=== PATIENT | female | born 1995 | race Caucasian/White ===

== ENCOUNTER 2017-02-19 13:38 | Emergency (ER) | payer BC, OTHER ==
--- NOTE | 2017-02-19 14:03 | EDM.PDOC ---
ED HPI GENERAL MEDICAL PROBLEM - General Chief Complaint: Abdominal Pain Stated Complaint: Abdominal pain Time Seen by Provider: 02/19/17 13:50 Source of Information: Reports: Patient, RN notes reviewed History Limitations: Reports: No Limitations - History of Present Illness INITIAL COMMENTS - FREE TEXT/NARRATIVE: 21 year old female presents to the ED with lower severe abdominal pain that came on suddenly about 2 hours prior to arrival. She describes the pain as sharp and stabbing. The pain is constant with episodes of more severe pain. The pain is located to her entire lower abdomen an LUQ. She has associated nausea and vomiting. No fever or chills. She's been seeing Tiny العراقي for abdominal pain and is the process of outpatient workup. She says that Tiny ordered "a bunch of blood work" but she hasn't heard the results. No recent CT scan. She denies possibility of . She's had her period on and off for the last 4 weeks. It just restarted again two days ago. She has painful, heavy periods but never this severe. No urinary symptoms. History of cholecystectomy Left Lower Abdomen Pain Score (Numeric/FACES): 10 - Related Data Allergies Allergy/AdvReac Type Severity Reaction Status Date / Time hydromorphone HCl Allergy "Pass out" Verified 01/29/15 15:16 [From Dilaudid] lidocaine Allergy "Pass Out" Verified 01/29/15 15:16 Home Meds: Home Meds Ibuprofen 200 mg PO Q6H PRN 01/09/15 [History] oxyCODONE HCl/Acetaminophen [Oxycodone-Acetaminophen 5-325] 1 - 2 each PO Q4H PRN #15 tablet 02/19/17 [Rx] Past Medical History Genitourinary History: Reports: Other (see below) Other Genitourinary History: painiful periods Psychiatric History: Reports: Bipolar - Past Surgical History GI Surgical History: Reports: Cholecystectomy Social & Family History - Tobacco Use Smoking Status *Q: Current Every Day Smoker Years of Tobacco use: 4 Packs/Tins Daily: 1 - Caffeine Use Caffeine Use: Reports: Coffee, Energy drinks, Soda - Alcohol Use Days Per Week of Alcohol Use: 2 Number of Drinks Per Day: 5 Total Drinks Per Week: 10 - Recreational Drug Use Recreational Drug Use: No Drug Use in Last 12 Months: No ED ROS GENERAL - Review of Systems Review Of Systems: See Below Constitutional: Reports: No Symptoms. Denies: Fever, Chills Respiratory: Reports: No Symptoms. Denies: Shortness of Breath Cardiovascular: Reports: No Symptoms. Denies: Chest Pain GI/Abdominal: Reports: Abdominal Pain, Diarrhea, Nausea, Vomiting : Reports: No Symptoms. Denies: Flank Pain, Frequency, Urgency ED EXAM, GI/ABD - Physical Exam Exam: See Below Exam Limited By: No Limitations General Appearance: Alert, Anxious, Severe Distress, Obese Respiratory/Chest: No Respiratory Distress, Lungs Clear, Normal Breath Sounds Cardiovascular: Regular Rate, Rhythm GI/Abdominal: Normal Bowel Sounds, Soft, No Organomegaly, No Distention, Guarding, McBurney's Sign, Other (guarded on exam, extremely tender with palpation to LLQ, RLQ, pelvic region, and LUQ). No: Rebound, Rigidity, Moore' s Sign Back Exam: Normal Inspection, Full Range of Motion. No: CVA Tenderness (L), CVA Tenderness (R) Neurological: Alert, Oriented, Normal Cognition Course - Vital Signs Last Recorded V/S: Last Vital Signs Temp 97.7 F 02/19/17 13:59 Pulse 65 02/19/17 13:59 Resp 16 02/19/17 13:59 BP 117/69 02/19/17 13:59 Pulse Ox 100 02/19/17 13:59 - Orders/Labs/Meds Orders: Active Orders 24 hr Category Date Time Status Peripheral IV Care [RC] . DIRECTED Care 02/19/17 14:05 Active UA W/MICROSCOPIC [URIN] Stat Lab 02/19/17 16:09 Results Sodium Chloride 0.9% [Saline Flush] Med 02/19/17 14:04 Active 10 ml FLUSH ASDIRECTED PRN Sodium Chloride 0.9% [Saline Flush] Med 02/19/17 15:29 Active 10 ml FLUSH ONETIME PRN Peripheral IV Insertion Adult [OM.PC] Stat Oth 02/19/17 14:04 Ordered Medication Orders Sodium Chloride (Saline Flush) 10 ml FLUSH ASDIRECTED PRN PRN Reason: Keep Vein Open Last Admin: 02/19/17 14:29 Dose: 10 ml Sodium Chloride (Saline Flush) 10 ml FLUSH ONETIME PRN PRN Reason: IV FLUSH Last Admin: 02/19/17 15:56 Dose: 10 ml Labs: Laboratory Tests 02/19/17 02/19/17 02/19/17 Range/Units 14:20 14:20 16:09 WBC 7.98 (3.98-10.04) K/mm3 RBC 4.85 (3.98-5.22) M/mm3 Hgb 15.2 (11.2-15.7) gm/L Hct 44.8 (34.1-44.9) % MCV 92.4 (79.4-94.8) fl MCH 31.3 (25.6-32.2) pg MCHC 33.9 (32.2-35.5) g/dl RDW Std Deviation 44.9 (36.4-46.3) fL Plt Count 286 (182-369) K/mm3 MPV 10.0 (9.4-12.3) fl Neut % (Auto) 68.5 (34.0-71.1) % Lymph % (Auto) 22.9 (19.3-51.7) % [place] % (Auto) 5.4 (4.7-12.5) % Eos % (Auto) 3.0 (0.7-5.8) Baso % (Auto) 0.1 (0.1-1.2) % Neut # (Auto) 5.46 (1.56-6.13) K/mm3 Lymph # (Auto) 1.83 (1.18-3.74) K/mm3 [place] # (Auto) 0.43 H (0.24-0.36) K/mm3 Eos # (Auto) 0.24 (0.04-0.36) K/mm3 Baso # (Auto) 0.01 (0.01-0.08) K/mm3 Sodium 140 (136-145) mEq/L Potassium 4.0 (3.5-5.1) mEq/L Chloride 105 (98-107) mEq/L Carbon Dioxide 22 (21-32) mEq/L Anion Gap 17.0 H (5-15) BUN 10 (7-18) mg/dL Creatinine 1.1 H (0.55-1.02) mg/dL Est Cr Clr Drug Dosing 75.73 mL/min Estimated GFR (MDRD) > 60 (>60) mL/min BUN/Creatinine Ratio 9.1 L (14-18) Glucose 128 H (74-106) mg/dL Calcium 9.3 (8.5-10.1) mg/dL Total Bilirubin 0.5 (0.2-1.0) mg/dL AST 44 H (15-37) U/L ALT 57 (14-59) U/L Alkaline Phosphatase 72 (46-116) U/L Total Protein 7.1 (6.4-8.2) g/dl Albumin 3.5 (3.4-5.0) g/dl Globulin 3.6 gm/dL Albumin/Globulin Ratio 1.0 (1-2) Urine Color (Yellow) Urine Appearance (Clear) Urine pH (5.0-8.0) Ur Specific [place] (1.005-1.030) Urine Protein (Negative) Urine Glucose (UA) (Negative) Urine Ketones (Negative) Urine Occult Blood (Negative) Urine Nitrite (Negative) Urine Bilirubin (Negative) Urine Urobilinogen (0.2-1.0) Ur Leukocyte Esterase (Negative) Urine HCG, Qual Negative (NEGATIVE) 02/19/17 Range/Units 16:09 WBC (3.98-10.04) K/mm3 RBC (3.98-5.22) M/mm3 Hgb (11.2-15.7) gm/L Hct (34.1-44.9) % MCV (79.4-94.8) fl MCH (25.6-32.2) pg MCHC (32.2-35.5) g/dl RDW Std Deviation (36.4-46.3) fL Plt Count (182-369) K/mm3 MPV (9.4-12.3) fl Neut % (Auto) (34.0-71.1) % Lymph % (Auto) (19.3-51.7) % [place] % (Auto) (4.7-12.5) % Eos % (Auto) (0.7-5.8) Baso % (Auto) (0.1-1.2) % Neut # (Auto) (1.56-6.13) K/mm3 Lymph # (Auto) (1.18-3.74) K/mm3 [place] # (Auto) (0.24-0.36) K/mm3 Eos # (Auto) (0.04-0.36) K/mm3 Baso # (Auto) (0.01-0.08) K/mm3 Sodium (136-145) mEq/L Potassium (3.5-5.1) mEq/L Chloride (98-107) mEq/L Carbon Dioxide (21-32) mEq/L Anion Gap (5-15) BUN (7-18) mg/dL Creatinine (0.55-1.02) mg/dL Est Cr Clr Drug Dosing mL/min Estimated GFR (MDRD) (>60) mL/min BUN/Creatinine Ratio (14-18) Glucose (74-106) mg/dL Calcium (8.5-10.1) mg/dL Total Bilirubin (0.2-1.0) mg/dL AST (15-37) U/L ALT (14-59) U/L Alkaline Phosphatase (46-116) U/L Total Protein (6.4-8.2) g/dl Albumin (3.4-5.0) g/dl Globulin gm/dL Albumin/Globulin Ratio (1-2) Urine Color [place] H (Yellow) Urine Appearance Slt cloudy H (Clear) Urine pH 7.0 (5.0-8.0) Ur Specific [place] 1.015 (1.005-1.030) Urine Protein 1+ H (Negative) Urine Glucose (UA) Negative (Negative) Urine Ketones Negative (Negative) Urine Occult Blood 3+ H (Negative) Urine Nitrite Negative (Negative) Urine Bilirubin Negative (Negative) Urine Urobilinogen 0.2 (0.2-1.0) Ur Leukocyte Esterase Negative (Negative) Urine HCG, Qual (NEGATIVE) Meds: Medications Generic Name Dose Route Start Last Admin Trade Name Freq PRN Reason Stop Dose Admin Sodium Chloride 10 ml 02/19/17 14:04 02/19/17 14:29 Saline Flush FLUSH 10 ml ASDIRECTED PRN Administration Keep Vein Open Sodium Chloride 10 ml 02/19/17 15:29 02/19/17 15:56 Saline Flush FLUSH 10 ml ONETIME PRN Administration IV FLUSH Discontinued Medications Generic Name Dose Route Start Last Admin Trade Name Freq PRN Reason Stop Dose Admin Diatrizoate Meglum/Diatrizoate Sod 90 ml 02/19/17 15:29 02/19/17 15:52 Gastrografin 37% PO 02/19/17 15:30 90 ml ONETIME ONE Administration Fentanyl 50 mcg 02/19/17 14:08 02/19/17 14:30 Sublimaze IVPUSH 02/19/17 14:09 50 mcg ONETIME ONE Administration Fentanyl 50 mcg 02/19/17 16:05 02/19/17 16:13 Sublimaze IVPUSH 02/19/17 16:06 50 mcg ONETIME ONE Administration Sodium Chloride 1,000 mls @ 999 mls/hr 02/19/17 14:04 02/19/17 14:24 Normal Saline IV 02/19/17 15:04 999 mls/hr ONETIME ONE Administration Iopamidol 125 ml 02/19/17 15:29 02/19/17 15:52 Isovue-300 (61%) IVPUSH 02/19/17 15:30 125 ml ONETIME ONE Administration Ketorolac Tromethamine 30 mg 02/19/17 14:04 02/19/17 14:27 Toradol IVPUSH 02/19/17 14:05 30 mg ONETIME ONE Administration Ondansetron HCl 4 mg 02/19/17 14:04 02/19/17 14:25 Zofran IVPUSH 02/19/17 14:05 4 mg ONETIME ONE Administration - Re-Assessments/Exams Free Text/Narrative Re-Assessment/Exam: Records obtained from [facility]. Workup at [facility] includes CBC normal. CMP normal except for mildly elevated ALT of 63. TSH WNL. CRP WNL. ESR WNL. Endomysial IgA negative. Amylase and lipase WNL. Full stool testing were unremarkable including negative C.diff and H Pylori. 02/19/17 16:42 CBC reveals normal WBC and H&H. CMP reveals normal potassium and sodium. Anion gap is 17. Creatinine 1.1 and BUN 10. Mildly elevated AST but normal ALT. Hcg is negative and UA is negative for infection. CT of abdomen/pelvis read by Dr. Walker, impression: 1. Bowel wall thickening within the transverse and descending colon. This is compatible with nonspecific colitis. 2. Previous cholecystectomy. No additional abnormality is appreciated on CT study The patients CBC is normal, making infectious cause of colitis unlikely. By history, this seems to be a chronic problem. She is currently working with her PCP regarding her frequent GI symptoms. I recommend colonoscopy for further evaluation of her colitis since there is concern for inflammatory bowel disease. Patient will be sent home with Percocet for pain. Encouraged to return with worsening of symptoms. She is to f/u with her PCP early next week. Departure - Departure Time of Disposition: 16:37 Disposition: Home, Self-Care 01 Condition: good Clinical Impression: Colitis, nonspecific Abdominal pain Qualifiers: Abdominal location: generalized Qualified Code(s): R10.84 - Generalized abdominal pain - Discharge Information Prescriptions: oxyCODONE HCl/Acetaminophen [Oxycodone-Acetaminophen 5-325] 1 - 2 each PO Q4H PRN #15 tablet PRN Reason: Pain Referrals: Tiny العراقي [employer] COORDINATOR [Primary Care Provider] - Forms: ED Department Discharge Additional Instructions: [place] diet Drink at least 80 oz of clear fluid per day Use your nausea medication as prescribed Ibuprofen 600mg every 8 hours alternating with Tylenol 650mg every 4-6 hours as needed for mild to moderate pain Percocet 1-2 tabs every 4-6 hours as needed for more severe pain Do not exceed 3000mg of Tylenol per day No driving today No driving for at least 6-8 hours after taking Percocet Follow-up with Tiny العراقي early next week Return to ER with worsening of symptoms - My Orders Last 24 Hours: My Active Orders 02/19/17 14:04 Sodium Chloride 0.9% [Saline Flush] 10 ml FLUSH ASDIRECTED PRN Peripheral IV Insertion Adult [OM.PC] Stat 02/19/17 14:05 Peripheral IV Care [RC] . DIRECTED 02/19/17 15:29 Sodium Chloride 0.9% [Saline Flush] 10 ml FLUSH ONETIME PRN 02/19/17 16:09 UA W/MICROSCOPIC [URIN] Stat - Assessment/Plan Last 24 Hours: My Active Orders 02/19/17 14:04 Sodium Chloride 0.9% [Saline Flush] 10 ml FLUSH ASDIRECTED PRN Peripheral IV Insertion Adult [OM.PC] Stat 02/19/17 14:05 Peripheral IV Care [RC] . DIRECTED 02/19/17 15:29 Sodium Chloride 0.9% [Saline Flush] 10 ml FLUSH ONETIME PRN 02/19/17 16:09 UA W/MICROSCOPIC [URIN] Stat
[2017-02-19] MEDS ORDERED: Sodium Chloride 0.9% 1,000 ML IV ONE (14:04)
[2017-02-19] MEDS ORDERED: Sodium Chloride 0.9% 10 ML Syringe FLUSH PRN ×2 (14:04→15:29)
[2017-02-19] MEDS ORDERED: Ondansetron 4 MG/2 ML SDV IVPUSH ONE (14:04)
[2017-02-19] MEDS ORDERED: Ketorolac 30 MG/ML SDV IVPUSH ONE (14:04)
[2017-02-19 14:05] VITALS: BP 117/69
[2017-02-19] MEDS ORDERED: fentaNYL 100 MCG/2 ML SDV IVPUSH ONE ×2 (14:08→16:05)
[2017-02-19] MEDS ORDERED: Diatrizoate Meglumine/Diatrizoate Sodium 37% 120 ML Bottle PO ONE (15:29)
[2017-02-19] MEDS ORDERED: Iopamidol 612 MG/ML 150 ML Bottle IVPUSH ONE (15:29)
--- NOTE | 2017-02-19 16:15 | CT ---
CT abdomen and pelvis Technique: Multiple axial sections were obtained from above the dome of the diaphragm inferiorly through the pubic symphysis. Intravenous and oral contrast was utilized. Delayed images were also obtained through the bladder. Comparison: Previous CT abdomen and pelvis exam of 12/13/12. Findings: Visualized lung bases shows nothing acute. Liver shows no focal parenchymal abnormality. Spleen appears within normal limits. Adrenal glands show no nodule. Pancreas is within normal limits. Surgical clips are noted from prior cholecystectomy. Mild wall thickening is noted within the transverse and descending colon. This is nonspecific. Aorta shows no aneurysmal dilatation. No retroperitoneal adenopathy or mesenteric abnormalities are seen. No pelvic mass or adenopathy is seen. Delayed images shows contrast within the bladder. No free fluid or inflammatory change is seen. No bowel dilatation is seen. Appendix is seen which appears normal. Impression: 1. Bowel wall thickening within the transverse and descending colon. This is compatible with a nonspecific colitis. 2. Previous cholecystectomy. No additional abnormality is appreciated on CT study of the abdomen and pelvis. Diagnostic code #3
== END 2017-02-19 17:00 | disposition home or self-care (01) ==
LOC: JD.ED 13:38
DX: K52.9 Noninfective gastroenteritis and colitis, unspecified (principal); R10.30 Lower abdominal pain, unspecified; R10.12 Left upper quadrant pain; F31.9 Bipolar disorder, unspecified; N94.6 Dysmenorrhea, unspecified; Z90.49 Acquired absence of other specified parts of digestive tract; F17.210 Nicotine dependence, cigarettes, uncomplicated
CPT/HCPCS: 36415; 74177; 80053; 81001; 81025; 85025; 96361; 96374; 96375; 96376; 99285; J1885; J2405; J3010; J7040; J7050; Q9963; Q9967; 99284

== ENCOUNTER 2017-07-26 08:08 | Emergency (ER) | payer BC ==
[2017-07-26 08:25] VITALS: BP 135/77
[2017-07-26] MEDS ORDERED: Metoclopramide 10 MG/2 ML SDV IVPUSH ONE (08:36)
--- NOTE | 2017-07-26 08:36 | EDM.PDOC ---
ED HPI GENERAL MEDICAL PROBLEM - General Chief Complaint: Abdominal Pain Stated Complaint: LEFT ABDOMINAL PAIN Time Seen by Provider: 07/26/17 08:30 Source of Information: Reports: Patient History Limitations: Reports: No Limitations - History of Present Illness INITIAL COMMENTS - FREE TEXT/NARRATIVE: 22-year-old female presents to the ED with diffuse left lateral midabdominal pain. She states it awoke her from sleep during the night and has a strong colicky component to it. She states she's having loose stools. No blood noted. Normal bowel movement for a couple of days. He's had this similar type pain on 3 or 4 occasions in the past. Associated nausea without any vomiting this morning. No history of renal stones. Did have a colonoscopy recently with polypectomy. No colitis was identified. Diagnosed with irritable bowel syndrome in the past. Last period was around the beginning of the month which would be 15 days ago. Drinks alcohol daily and mother feels to excess. Previous cholecystectomy. Feeling of need to void but often unable to do so suggestive of kidney stone. No dysuria. Note patient is on Abilify 5 mg daily for bipolar affective disorder. This medication is commonly associated with constipation issues. Onset: Today Onset Date: 07/26/17 Onset Time: 03:00 Duration: Hour(s):, Colic, Constant Location: Reports: Abdomen (Pain is constant with a strong colicky component. [place] most left lateral mid abdomen. Pain radiates towards the bladder. Does have a feeling of need to void a lot but unable to do so.) Quality: Reports: Ache, Same as Previous Episode, Sharp, Stabbing Severity: Severe Improves with: Reports: None Worsens with: Reports: None Context: Reports: Other (Awoke from sleep early this morning with the pain.). Denies: Activity, Exercise, Lifting, Sick Contact, Trauma Associated Symptoms: Reports: Loss of Appetite (Nausea without vomiting), Nausea /Vomiting. Denies: Malaise, Shortness of Breath, Syncope Treatments DIE REPAIR: Reports: Other (see below) (None.) Left Abdomen Pain Score (Numeric/FACES): 7 - Related Data Allergies Allergy/AdvReac Type Severity Reaction Status Date / Time hydromorphone HCl Allergy "Pass out" Verified 07/26/17 08:25 [From Dilaudid] lidocaine Allergy "Pass Out" Verified 07/26/17 08:25 Home Meds: Home Meds ARIPiprazole [Abilify] 5 mg PO DAILY 07/26/17 [History] buPROPion [Wellbutrin] 100 mg PO DAILY 07/26/17 [History] oxyCODONE HCl/Acetaminophen [Percocet 5-325 mg Tablet] 1 - 2 each PO Q4H PRN # 20 tablet 07/26/17 [Rx] Past Medical History Genitourinary History: Reports: Other (See Below) Other Genitourinary History: painiful periods Psychiatric History: Reports: Bipolar - Past Surgical History GI Surgical History: Reports: Cholecystectomy Social & Family History - Tobacco Use Smoking Status *Q: Current Every Day Smoker Years of Tobacco use: 5 Packs/Tins Daily: 1 - Caffeine Use Caffeine Use: Reports: None - Alcohol Use Days Per Week of Alcohol Use: 2 Number of Drinks Per Day: 5 Total Drinks Per Week: 10 - Recreational Drug Use Recreational Drug Use: No Drug Use in Last 12 Months: No - Living Situation & Occupation Living situation: Reports: Single Occupation: Unemployed ED ROS GENERAL - Review of Systems Review Of Systems: See Below Constitutional: Reports: Malaise, Fatigue, Decreased Appetite. Denies: Fever, Chills HEENT: Reports: No Symptoms Respiratory: Reports: No Symptoms Cardiovascular: Reports: No Symptoms Endocrine: Reports: No Symptoms GI/Abdominal: Reports: Abdominal Pain, Constipation (Issues with constipation in the past.), Diarrhea (Current stools are loose. Associated with the cramping pain.) : Reports: Urgency (But often can't go. Has a feeling of need to void but unable to do so.) Musculoskeletal: Reports: No Symptoms Skin: Reports: No Symptoms Neurological: Reports: No Symptoms Psychiatric: Reports: No Symptoms ED EXAM, GI/ABD - Physical Exam Exam: See Below Exam Limited By: No Limitations General Appearance: Alert, WD/WN, Moderate Distress (Appears to be uncomfortable.) Eyes: Bilateral: Normal Appearance (No icterus.) Throat/Mouth: Normal Inspection, Normal Lips, Normal Oropharynx, Other Head: Atraumatic, Normocephalic (Tongue is mildly coated and dry) Respiratory/Chest: No Respiratory Distress, Lungs Clear, Normal Breath Sounds, No Accessory Muscle Use Cardiovascular: Normal Peripheral Pulses, Regular Rate, Rhythm, No Edema, No Murmur GI/Abdominal Exam: No Organomegaly, No Distention, Tender, Abnormal Bowel Sounds (Quiescent bowel sounds.), Other Extremities: Normal Inspection, Normal Range of Motion, Non-Tender, Normal Capillary Refill Neurological: Alert, Oriented, CN II-XII Intact, Normal Cognition Psychiatric: Normal Affect, Normal Mood Skin Exam: Warm, Dry, Intact, Normal Color, No Rash Course - Vital Signs Last Recorded V/S: Last Vital Signs Temp 36.2 C 07/26/17 08:20 Pulse 86 07/26/17 08:20 Resp 16 07/26/17 08:20 BP 135/77 07/26/17 08:20 Pulse Ox 93 L 07/26/17 08:20 - Orders/Labs/Meds Orders: Active Orders 24 hr Category Date Time Status Abdomen 1V Flat [CR] Stat Exams 07/26/17 08:45 Taken Labs: Laboratory Tests 07/26/17 07/26/17 07/26/17 Range/Units 08:55 08:55 08:55 WBC 9.00 (3.98-10.04) K/mm3 RBC 4.63 (3.98-5.22) M/mm3 Hgb 14.4 (11.2-15.7) gm/L Hct 42.5 (34.1-44.9) % MCV 91.8 (79.4-94.8) fl MCH 31.1 (25.6-32.2) pg MCHC 33.9 (32.2-35.5) g/dl RDW Std Deviation 44.4 (36.4-46.3) fL Plt Count 299 (182-369) K/mm3 MPV 9.4 (9.4-12.3) fl Neutrophils % (Manual) 49 (40-60) % Band Neutrophils % 0 (0-10) % Lymphocytes % (Manual) 40 (20-40) % Atypical Lymphs % 0 % Monocytes % (Manual) 5 (2-10) % Eosinophils % (Manual) 6 H (0.7-5.8) % Basophils % (Manual) 0 L (0.1-1.2) Platelet Estimate Adequate RBC Morph Comment Normal PT 10.4 (8.0-13.0) SECONDS INR 0.96 Sodium 144 (136-145) mEq/L Potassium 3.8 (3.5-5.1) mEq/L Chloride 108 H (98-107) mEq/L Carbon Dioxide 26 (21-32) mEq/L Anion Gap 13.8 (5-15) BUN 10 (7-18) mg/dL Creatinine 1.1 H (0.55-1.02) mg/dL Est Cr Clr Drug Dosing TNP Estimated GFR (MDRD) > 60 (>60) mL/min BUN/Creatinine Ratio 9.1 L (14-18) Glucose 95 (74-106) mg/dL Calcium 9.1 (8.5-10.1) mg/dL Magnesium 1.8 (1.8-2.4) mg/dl Total Bilirubin 0.4 (0.2-1.0) mg/dL AST 34 (15-37) U/L ALT 45 (14-59) U/L Alkaline Phosphatase 58 (46-116) U/L Total Protein 6.7 (6.4-8.2) g/dl Albumin 3.2 L (3.4-5.0) g/dl Globulin 3.5 gm/dL Albumin/Globulin Ratio 0.9 L (1-2) Lipase 98 (73-393) U/L HCG, Qual (NEGATIVE) 07/26/17 Range/Units 08:55 WBC (3.98-10.04) K/mm3 RBC (3.98-5.22) M/mm3 Hgb (11.2-15.7) gm/L Hct (34.1-44.9) % MCV (79.4-94.8) fl MCH (25.6-32.2) pg MCHC (32.2-35.5) g/dl RDW Std Deviation (36.4-46.3) fL Plt Count (182-369) K/mm3 MPV (9.4-12.3) fl Neutrophils % (Manual) (40-60) % Band Neutrophils % (0-10) % Lymphocytes % (Manual) (20-40) % Atypical Lymphs % % Monocytes % (Manual) (2-10) % Eosinophils % (Manual) (0.7-5.8) % Basophils % (Manual) (0.1-1.2) Platelet Estimate RBC Morph Comment PT (8.0-13.0) SECONDS INR Sodium (136-145) mEq/L Potassium (3.5-5.1) mEq/L Chloride (98-107) mEq/L Carbon Dioxide (21-32) mEq/L Anion Gap (5-15) BUN (7-18) mg/dL Creatinine (0.55-1.02) mg/dL Est Cr Clr Drug Dosing Estimated GFR (MDRD) (>60) mL/min BUN/Creatinine Ratio (14-18) Glucose (74-106) mg/dL Calcium (8.5-10.1) mg/dL Magnesium (1.8-2.4) mg/dl Total Bilirubin (0.2-1.0) mg/dL AST (15-37) U/L ALT (14-59) U/L Alkaline Phosphatase (46-116) U/L Total Protein (6.4-8.2) g/dl Albumin (3.4-5.0) g/dl Globulin gm/dL Albumin/Globulin Ratio (1-2) Lipase (73-393) U/L HCG, Qual Negative (NEGATIVE) Meds: Medications Discontinued Medications Generic Name Dose Route Start Last Admin Trade Name Freq PRN Reason Stop Dose Admin Dextrose/Sodium Chloride 1,000 mls @ 150 mls/hr 07/26/17 08:45 07/26/17 09:00 Dextrose 5%-Normal Saline IV 150 mls/hr ASDIRECTED JERE Administration Ketorolac Tromethamine 30 mg 07/26/17 10:00 07/26/17 10:05 Toradol IVPUSH 30 mg ONETIME JERE Administration Metoclopramide HCl 10 mg 07/26/17 08:36 07/26/17 09:01 Reglan IVPUSH 07/26/17 08:37 10 mg ONETIME ONE Administration Morphine Sulfate 8 mg 07/26/17 08:37 07/26/17 09:02 Morphine IVPUSH 07/26/17 08:38 8 mg ONETIME ONE Administration Morphine Sulfate 8 mg 07/26/17 09:48 07/26/17 10:04 Morphine IVPUSH 07/26/17 09:49 8 mg ONETIME ONE Administration - Radiology Interpretation Free Text/Narrative:: 22-year-old female presents the ED with acute exacerbation of left vanessa- abdominal pain. She states most of it is in the left lateral mid abdomen but radiates downwards towards the groin. Associated feeling of need to void but unable to do so. No history of kidney stones overall history is suggestive of this. She states she is having some loose stools associated with cramping abdominal pain. Of note she is on Abilify which is prone to causing constipation. She's been in the ED on a pew occasions the past with similar type illness. Recent colonoscopy identified polyps but no signs of colitis. Plan D5 normal saline at 150 mils per hour. Given morphine 8 mg IV with Reglan 10 mg IV for pain relief. Labs to be done to include a serum lipase as she does drink alcohol daily. One view of the abdomen to be obtained. - Re-Assessments/Exams Free Text/Narrative Re-Assessment/Exam: 07/26/17 09:26 KUB is essentially normal. There is a little bit of increased stool in the splenic flexure of the colon but no significant constipation. No signs of bowel obstruction. Awaiting lab work to make sure she is not and will proceed with CT of the abdomen and pelvis per renal protocol to rule out a stone. Hematology is back indicating a white count of 9.0 with 49% neutrophils and no bands. Hemoglobin is 14.4 platelets are michelle.Lab tests reveal a white count of 9.0 with 49% neutrophils and no bands. Hemoglobin is 14.4 with hematocrit of 42.5 MCV is normal at 91.8. PT is 10.4 with an INR of 0.96. Sodium 144 potassium 3.8 chloride 108 bicarbonate 26. And a gap is 13.8 be when his 10. Creatinine 1.1 with a GFR greater than 60.. Glucose is 95. Magnesium 1.8. Bilirubin 0.4 AST is 30 . ALT is 45. Albumin fraction is 3.2. Beta hCG was negative. 07/26/17 09:51 complains of pain 7 out of 10. Will repeat morphine 8 mg IV and Toradol 30 mg IV for pain relief. CT scan of the abdomen will be performed without any contrast as her history is somewhat suggestive of renal colic. I have a look at her previous CT but it was done with contrast and no visible stones were identified in either kidney. 07/26/17 11:00 CT scan of the abdomen and pelvis reveals 2 small stones wedged at the distal UVJ on the left side. They appear to be between 1 and 2 mm in size. No other stones were identified within either renal parenchyma. No other abnormality is a patient on CT exam of the abdomen. Patient was not unable to void while in the department. She will be discharged home with a strainer. Percocet tabs 5/325 one or 2 every 4-6 hours needed for pain relief. She has Zofran tablets at home if needed. Stones are likely to pass in the next 48 hours. Follow-up with personal care provider if any other problems occur. Departure - Departure Time of Disposition: 11:01 Disposition: Home, Self-Care 01 Condition: Fair Clinical Impression: Renal colic on left side - Discharge Information Prescriptions: oxyCODONE HCl/Acetaminophen [Percocet 5-325 mg Tablet] 1 - 2 each PO Q4H PRN # 20 tablet PRN Reason: pain relief. Instructions: Renal Colic, [id number] Referrals: [facility] [employer] [facility] [employer] [Primary Care Provider] - Forms: ED Department Discharge Additional Instructions: Evaluation in the emergency room today in regards to awakening from sleep with severe pain left upper abdomen and flank area radiating down to the left lower quadrant of the abdomen. History of kidney stones. You're unable to void and therefore a urine sample could not be obtained to identify blood in the urine. An x-ray of the abdomen was done and was within normal limits as were lab tests. Therefore CT of the abdomen was completed and reveals 2 small stones 1-2 mm in size wedged in the very lower portion of the left ureter. These were passed into the bladder and this will relieve her pain likely within the next 2 days but sometimes it'll take up to a couple weeks to pass. You will therefore take Percocet 5/3/25 milligram tablets one or 2 every 4 hours as needed when the pain returns. May require Zofran under the tongue to relieve nausea so she with the severity of the pain. Strain the urine to make sure the stones passed. No other stones were identified in either kidney to be problematic in the future. Follow-up with her personal care provider of any further problems occur. Especially things like fever chills nausea or vomiting. - My Orders Last 24 Hours: My Active Orders 07/26/17 08:45 Abdomen 1V Flat [CR] Stat - Assessment/Plan Last 24 Hours: My Active Orders 07/26/17 08:45 Abdomen 1V Flat [CR] Stat
[2017-07-26] MEDS ORDERED: Morphine 10 MG/ML Syringe IVPUSH ONE ×2 (08:37→09:48)
[2017-07-26] MEDS ORDERED: Dextrose 5%-0.9% NaCl 1,000 ML IV SCH (08:45)
[2017-07-26] MEDS ORDERED: Ketorolac 30 MG/ML SDV IVPUSH SCH (10:00)
--- NOTE | 2017-07-26 10:38 | CT ---
CT abdomen and pelvis Technique: Multiple axial sections were obtained from above the kidneys inferiorly to the pubic symphysis. Intravenous and oral contrast not utilized. Study has been performed as a ureteral stone protocol. Comparison: Previous abdominal pelvic CT exam of 02/19/17. Findings: Left ureter is mildly prominent. 3 small calcifications measuring 2 mm or below are seen within the distal left ureter at the UVJ which are felt compatible with mildly obstructing ureteral calculi. No abnormal calcifications are seen within the kidneys. Right ureter is unremarkable. Visualized posterior lung bases shows nothing acute. Visualized noncontrast appearance of the liver and spleen appears within normal limits. Surgical clips are seen from prior cholecystectomy. Adrenal glands show no nodule. Pancreas appears within normal limits. Aorta shows no aneurysmal dilatation. No retroperitoneal adenopathy or mesenteric abnormalities are seen. Appendix is seen which appears normal. No pelvic mass or adenopathy is seen. Bone window settings were reviewed which appears within normal limits for the patient's age. Impression: 1. 3 very small calcifications within the distal left ureter measuring 2 mm or less in size. Findings are felt compatible with mildly obstructing calculi which are located near the UVJ. Left ureter is mildly prominent in size. 2. No additional abnormality is appreciated on noncontrast CT study of the abdomen and pelvis. Diagnostic code #3
--- NOTE | 2017-07-26 20:01 | CR ---
Abdomen: Supine view of the abdomen was obtained. Comparison: No prior abdominal x-ray, previous CT abdomen and pelvis exam of 02/19/17. Bowel gas pattern appears normal. Surgical clips are seen from previous cholecystectomy. No definite abnormal calcifications are seen. Bony structures are unremarkable. Impression: 1. Nonspecific supine abdominal x-ray. Diagnostic code #2
== END 2017-07-26 11:12 | disposition home or self-care (01) ==
LOC: JD.ED 08:08
DX: N20.0 Calculus of kidney (principal); F17.210 Nicotine dependence, cigarettes, uncomplicated; Z79.899 Other long term (current) drug therapy; Z88.5 Allergy status to narcotic agent
CPT/HCPCS: 36415; 74000; 74176; 80053; 83690; 83735; 84703; 85025; 85610; 96361; 96374; 96375; 96376; 99285; J1885; J2270; J2765; J7042; 99284

== ENCOUNTER 2020-12-28 16:25 | Emergency (ER) | payer BC ==
[2020-12-28 16:43] VITALS: PULSE 79
[2020-12-28 16:50] VITALS: BP 160/90
[2020-12-28] MEDS ORDERED: Sodium Chloride 0.9% 10 ML Syringe FLUSH PRN (17:02)
--- NOTE | 2020-12-28 17:41 | EDM.PDOC ---
ED HPI GENERAL MEDICAL PROBLEM - General Chief Complaint: Abdominal Pain Stated Complaint: ABDOMINAL PAIN/SWEATING/VOMITING Time Seen by Provider: 12/28/20 16:35 Source of Information: Reports: Patient History Limitations: Reports: No Limitations - History of Present Illness INITIAL COMMENTS - FREE TEXT/NARRATIVE: 25-year-old female presents to the emergency department with complaints of lower abdominal pain. She started her menses yesterday and normally has severe cramps however she woke this morning and they were significantly worse. Patient did have nausea and vomiting and diaphoresis associated with this. She denies fever, chills, or diarrhea. She states she had a bowel movement this morning and it was normal. She states that she does have an irregular menstrual cycle and prior to this she had not had her period in over 3 months. She does not believe she could be because her significant other has had a vasectomy. She has had surgery to remove her gallbladder in the past however she does still have an appendix. She also states she has had no desire to eat or drink anything today. Treatments BERRY GROWER: Reports: NSAIDS, Other Medication(s) - Related Data Allergies Allergy/AdvReac Type Severity Reaction Status Date / Time amoxicillin Allergy Rash Verified 12/28/20 16:34 hydromorphone HCl Allergy "Pass out" Verified 07/26/17 08:25 [From Dilaudid] Home Meds: Home Meds Ustekinumab [Stelara] 90 mg SQ ASDIRECTED 12/28/20 [History] traMADol HCl [Tramadol HCl] 50 mg PO ASDIRECTED PRN 12/28/20 [History] Past Medical History HEENT History: Reports: None Cardiovascular History: Reports: None Respiratory History: Reports: Asthma, Bronchitis, Recurrent Gastrointestinal History: Reports: Cholelithiasis, GERD, Hiatal Hernia Genitourinary History: Reports: Other (See Below) Other Genitourinary History: painiful periods Musculoskeletal History: Reports: Arthritis Neurological History: Reports: Migraines Psychiatric History: Reports: Bipolar Endocrine/Metabolic History: Reports: Obesity/BMI 30+ Immunologic History: Reports: None Oncologic (Cancer) History: Reports: None Dermatologic History: Reports: None - Infectious Disease History Infectious Disease History: Reports: Influenza, Other (See Below) Other Infectious Disease History: Swine flu - Past Surgical History HEENT Surgical History: Reports: Oral Surgery GI Surgical History: Reports: Cholecystectomy Social & Family History - Family History Family Medical History: No Pertinent Family History - Tobacco Use Tobacco Use Status *Q: Current Every Day Tobacco User Years of Tobacco use: 8 Packs/Tins Daily: 0.5 - Caffeine Use Caffeine Use: Reports: Soda - Recreational Drug Use Recreational Drug Use: No - Living Situation & Occupation Living situation: Reports: Single Occupation: Unemployed ED ROS GENERAL - Review of Systems Review Of Systems: Comprehensive ROS is negative, except as noted in HPI. ED EXAM, GI/ABD - Physical Exam Exam: See Below Exam Limited By: No Limitations General Appearance: Alert, WD/WN, No Apparent Distress Ears: Normal External Exam, Hearing Grossly Normal Nose: Normal Inspection Throat/Mouth: Normal Inspection, Normal Lips, Normal Voice, No Airway Compromise Head: Atraumatic, Normocephalic Neck: Normal Inspection, Supple, Non-Tender, Full Range of Motion Respiratory/Chest: No Respiratory Distress, Lungs Clear, Normal Breath Sounds, No Accessory Muscle Use, Chest Non-Tender Cardiovascular: Normal Peripheral Pulses, Regular Rate, Rhythm, No Edema, No Murmur GI/Abdominal Exam: Normal Bowel Sounds, Soft, No Distention, Tender (To right and left lower quadrant as well as right upper quadrant). No: Non-Tender (Female) Exam: Deferred Rectal (Female) Exam: Deferred Back Exam: Normal Inspection, Full Range of Motion Extremities: Normal Inspection, Normal Range of Motion, Non-Tender, No Pedal Edema, Normal Capillary Refill Neurological: Alert, Oriented, Normal Cognition Psychiatric: Normal Affect, Normal Mood Skin Exam: Warm, Dry, Intact, Normal Color, No Rash Lymphatic: No Adenopathy Course - Vital Signs Text/Narrative:: 25-year-old female presenting with lower abdominal pain. Patient states that she started her menstrual cycle yesterday and normally has severe menstrual cramps however this morning when she woke she said they were much worse. Patient states that that her menstrual cycle is very regular and prior to today she had had a cycle for about 3 months. She denies any history of ovarian cysts. States that she is having lower abdominal cramping which radiates around to her back on both sides which are exactly like her menstrual cramps however today the pain was so severe that it caused her to have nausea, vomiting, and diaphoresis. She denies any fever, chills, or diarrhea associated with this. She denies any dysuria. She denies the possibility that she could be due to her significant other having vasectomy in the past however she does not take any kind of control. Patient states that pain is significantly better from this morning as she did take tramadol to help the discomfort. I have ordered labs and a urine test as well as urinalysis. Last Recorded V/S: Last Vital Signs Temp 97.5 F 12/28/20 16:49 Pulse 79 12/28/20 16:49 Resp 18 12/28/20 16:49 BP 160/90 H 12/28/20 16:49 Pulse Ox 98 12/28/20 16:49 - Orders/Labs/Meds Orders: Active Orders 24 hr Category Date Time Status Transvaginal Non OB [US] Stat Exams 12/28/20 19:07 Ordered CULTURE URINE [] Stat Lab 12/28/20 17:00 Received Sodium Chloride 0.9% [Saline Flush] Med 12/28/20 17:02 Active 10 ml FLUSH ASDIRECTED PRN Saline Lock Insert [OM.PC] Stat Oth 12/28/20 17:02 Ordered Medication Orders Sodium Chloride (Sodium Chloride 0.9% 10 Ml Syringe) 10 ml FLUSH ASDIRECTED PRN PRN Reason: Keep Vein Open Last Admin: 12/28/20 17:05 Dose: 10 ml Documented by: MAXIMO Labs: Laboratory Tests 12/28/20 12/28/20 12/28/20 Range/Units 16:50 16:50 17:00 WBC 9.95 (3.98-10.04) K/mm3 RBC 4.61 (3.98-5.22) M/mm3 Hgb 14.9 (11.2-15.7) gm/dl Hct 44.3 (34.1-44.9) % MCV 96.1 H D (79.4-94.8) fl MCH 32.3 H (25.6-32.2) pg MCHC 33.6 (32.2-35.5) g/dl RDW Std Deviation 45.3 (36.4-46.3) fL Plt Count 292 (182-369) K/mm3 MPV 9.5 (9.4-12.3) fl Neut % (Auto) 69.9 (34.0-71.1) % Lymph % (Auto) 23.7 (19.3-51.7) % [place] % (Auto) 5.6 (4.7-12.5) % Eos % (Auto) 0.6 L (0.7-5.8) Baso % (Auto) 0.1 (0.1-1.2) % Neut # (Auto) 6.95 H (1.56-6.13) K/mm3 Lymph # (Auto) 2.36 (1.18-3.74) K/mm3 [place] # (Auto) 0.56 H (0.24-0.36) K/mm3 Eos # (Auto) 0.06 (0.04-0.36) K/mm3 Baso # (Auto) 0.01 (0.01-0.08) K/mm3 Sodium 142 (136-145) mEq/L Potassium 4.2 (3.5-5.1) mEq/L Chloride 105 (98-107) mEq/L Carbon Dioxide 25 (21-32) mEq/L Anion Gap 16.2 H (5-15) BUN 8 (7-18) mg/dL Creatinine 1.1 H (0.55-1.02) mg/dL Est Cr Clr Drug Dosing 74.61 mL/min Estimated GFR (MDRD) > 60 (>60) mL/min BUN/Creatinine Ratio 7.3 L (14-18) Glucose 94 (74-106) mg/dL Calcium 8.9 (8.5-10.1) mg/dL Total Bilirubin 0.8 (0.2-1.0) mg/dL AST 33 (15-37) U/L ALT 52 (14-59) U/L Alkaline Phosphatase 59 (46-116) U/L C-Reactive Protein 1.1 H* (<1.0) mg/dL Total Protein 6.9 (6.4-8.2) g/dl Albumin 3.4 (3.4-5.0) g/dl Globulin 3.5 gm/dL Albumin/Globulin Ratio 1.0 (1-2) Urine Color Yellow (Yellow) Urine Appearance Clear (Clear) Urine pH 5.5 (5.0-8.0) Ur Specific [place] > or = 1.030 (1.005-1.030) Urine Protein 3+ H (Negative) Urine Glucose (UA) Negative (Negative) Urine Ketones Negative (Negative) Urine Occult Blood 3+ H (Negative) Urine Nitrite Negative (Negative) Urine Bilirubin 1+ H (Negative) Urine Urobilinogen 0.2 (0.2-1.0) Ur Leukocyte Esterase 1+ H (Negative) Urine RBC 30-40 H (0-5) /hpf Urine WBC 5-10 H (0-5) /hpf Ur Squamous Epith Cells 5-10 H (0-5) /hpf Urine Bacteria Few (FEW) /hpf Urine Mucus Moderate H (FEW) /hpf Urine HCG, Qual (NEGATIVE) 12/28/20 Range/Units 17:00 WBC (3.98-10.04) K/mm3 RBC (3.98-5.22) M/mm3 Hgb (11.2-15.7) gm/dl Hct (34.1-44.9) % MCV (79.4-94.8) fl MCH (25.6-32.2) pg MCHC (32.2-35.5) g/dl RDW Std Deviation (36.4-46.3) fL Plt Count (182-369) K/mm3 MPV (9.4-12.3) fl Neut % (Auto) (34.0-71.1) % Lymph % (Auto) (19.3-51.7) % [place] % (Auto) (4.7-12.5) % Eos % (Auto) (0.7-5.8) Baso % (Auto) (0.1-1.2) % Neut # (Auto) (1.56-6.13) K/mm3 Lymph # (Auto) (1.18-3.74) K/mm3 [place] # (Auto) (0.24-0.36) K/mm3 Eos # (Auto) (0.04-0.36) K/mm3 Baso # (Auto) (0.01-0.08) K/mm3 Sodium (136-145) mEq/L Potassium (3.5-5.1) mEq/L Chloride (98-107) mEq/L Carbon Dioxide (21-32) mEq/L Anion Gap (5-15) BUN (7-18) mg/dL Creatinine (0.55-1.02) mg/dL Est Cr Clr Drug Dosing mL/min Estimated GFR (MDRD) (>60) mL/min BUN/Creatinine Ratio (14-18) Glucose (74-106) mg/dL Calcium (8.5-10.1) mg/dL Total Bilirubin (0.2-1.0) mg/dL AST (15-37) U/L ALT (14-59) U/L Alkaline Phosphatase (46-116) U/L C-Reactive Protein (<1.0) mg/dL Total Protein (6.4-8.2) g/dl Albumin (3.4-5.0) g/dl Globulin gm/dL Albumin/Globulin Ratio (1-2) Urine Color (Yellow) Urine Appearance (Clear) Urine pH (5.0-8.0) Ur Specific [place] (1.005-1.030) Urine Protein (Negative) Urine Glucose (UA) (Negative) Urine Ketones (Negative) Urine Occult Blood (Negative) Urine Nitrite (Negative) Urine Bilirubin (Negative) Urine Urobilinogen (0.2-1.0) Ur Leukocyte Esterase (Negative) Urine RBC (0-5) /hpf Urine WBC (0-5) /hpf Ur Squamous Epith Cells (0-5) /hpf Urine Bacteria (FEW) /hpf Urine Mucus (FEW) /hpf Urine HCG, Qual Negative (NEGATIVE) Meds: Medications Generic Name Dose Route Start Last Admin Trade Name Cami PRN Reason Stop Dose Admin Sodium Chloride 10 ml 12/28/20 17:02 12/28/20 17:05 Sodium Chloride 0.9% 10 Ml Syringe FLUSH 10 ml ASDIRECTED PRN Administration Keep Vein Open Discontinued Medications Generic Name Dose Route Start Last Admin Trade Name Cami PRN Reason Stop Dose Admin Ketorolac Tromethamine 60 mg 12/28/20 17:55 12/28/20 18:40 Ketorolac 60 Mg/2 Ml Sdv IM 12/28/20 17:56 60 mg ONETIME ONE Administration Metoclopramide HCl 10 mg 12/28/20 17:55 12/28/20 18:39 Metoclopramide 10 Mg/2 Ml Sdv IM 12/28/20 17:56 10 mg ONETIME ONE Administration - Re-Assessments/Exams Free Text/Narrative Re-Assessment/Exam: 12/28/20 18:07 Hematology is unremarkable, chemistry reveals sodium 142, potassium 4.2, anion gap 16.2, BUN 8, creatinine 1.1, glucose 94, C-reactive protein 1.1, Urinalysis reveals 3+ urine protein, 3+ occult blood, 1+ bilirubin, leuk esterase 1+, urine RBC 30-40, urine WBC 5-10, urine squamous epithelial cells 5- 10, urine mucus moderate, urine hCG negative. Patient is on her period and this is likely the reason for the 3+, and RBCs present. Urine sample appears contaminated however we will send it for culture and call the patient if these are positive. 12/28/20 19:07 Patient states she is still having cramping type of discomfort after being medicated with Toradol and Reglan. I have ordered a transvaginal ultrasound. 12/28/20 19:36 Pt is not wanting to stay to have ultrasound and is requesting to go home. Departure - Departure Time of Disposition: 19:37 Disposition: Home, Self-Care 01 Condition: Fair Clinical Impression: Abdominal pain Qualifiers: Abdominal location: generalized Qualified Code(s): R10.84 - Generalized abdominal pain - Discharge Information Referrals: Giovanna Jiménez NP [Primary Care Provider] - Forms: ED Department Discharge Additional Instructions: You were seen in the emergency department today with lower abdominal cramping and cramping into your back. Labs were completed and these were essentially unremarkable and did not show any signs of infection. However, I did order a transvaginal ultrasound and you did not want to have this completed and stated that you felt better. Go home and rest. Take ibuprofen for the menstrual discomfort. Follow-up with your [facility] next week if you are still having lower abdominal discomfort. Should your condition worsen or change please not hesitate returning to the emergency department Sepsis Event Note (ED) - Evaluation Sepsis Screening Result: No Definite Risk - Focused Exam Vital Signs: Vital Signs Temp Pulse Resp BP Pulse Ox 12/28/20 16:49 97.5 F 79 18 160/90 H 98 12/28/20 16:41 97.5 F 79 18 98 - My Orders Last 24 Hours: My Active Orders 12/28/20 17:00 CULTURE URINE [RM] Stat 12/28/20 17:02 Sodium Chloride 0.9% [Saline Flush] 10 ml FLUSH ASDIRECTED PRN Saline Lock Insert [OM.PC] Stat 12/28/20 19:07 Transvaginal Non OB [US] Stat - Assessment/Plan Last 24 Hours: My Active Orders 12/28/20 17:00 CULTURE URINE [RM] Stat 12/28/20 17:02 Sodium Chloride 0.9% [Saline Flush] 10 ml FLUSH ASDIRECTED PRN Saline Lock Insert [OM.PC] Stat 12/28/20 19:07 Transvaginal Non OB [US] Stat
[2020-12-28] MEDS ORDERED: Metoclopramide 10 MG/2 ML SDV IM ONE (17:55)
[2020-12-28] MEDS ORDERED: Ketorolac 60 MG/2 ML SDV IM ONE (17:55)
== END 2020-12-28 19:46 | disposition home or self-care (01) ==
LOC: JD.ED 16:25
DX: R10.84 Generalized abdominal pain (principal); R10.31 Right lower quadrant pain; R10.32 Left lower quadrant pain; R10.11 Right upper quadrant pain; R11.2 Nausea with vomiting, unspecified; R61 Generalized hyperhidrosis; J45.909 Unspecified asthma, uncomplicated; E66.9 Obesity, unspecified; Z68.43 Body mass index [BMI] 50.0-59.9, adult; Z72.0 Tobacco use; Z88.0 Allergy status to penicillin; Z88.5 Allergy status to narcotic agent
CPT/HCPCS: 36415; 80053; 81001; 81025; 85025; 86140; 87086; 96372; 99284; J1885; J2765

== ENCOUNTER 2021-05-27 06:18 | Emergency (ER) | payer BC ==
[2021-05-27 06:32] VITALS: BP 130/77; PULSE 65
[2021-05-27] MEDS ORDERED: Ondansetron 4 MG/2 ML SDV IVPUSH ONE (06:52)
[2021-05-27] MEDS ORDERED: Sodium Chloride 0.9% 10 ML Syringe FLUSH PRN (06:52)
[2021-05-27] MEDS ORDERED: Morphine 4 MG/ML Syringe IVPUSH ONE ×2 (06:54→09:00)
--- NOTE | 2021-05-27 06:59 | EDM.PDOC ---
ED HPI GENERAL MEDICAL PROBLEM - General Chief Complaint: Abdominal Pain Stated Complaint: UPPER ABDOMINAL PAIN Time Seen by Provider: 05/27/21 06:47 Source of Information: Reports: Patient History Limitations: Reports: No Limitations - History of Present Illness INITIAL COMMENTS - FREE TEXT/NARRATIVE: The patient presents with right upper abdominal pain, nausea, and vomiting. This started at about 5am. She had her gallbladder removed a few years ago. She has no fever, chills, cough, congestion, runny nose chest pain, shortness of breath or diarrhea. She was just diagnosed with bronchitis. Onset: Sudden Duration: Hour(s): Location: Reports: Abdomen Quality: Reports: Sharp Severity: Severe Improves with: Reports: None Worsens with: Reports: None Associated Symptoms: Reports: Nausea/Vomiting. Denies: Chest Pain, Cough, Fever/Chills, Headaches, Shortness of Breath Epigastric Pain Score (Numeric/FACES): 9 - Related Data Allergies Allergy/AdvReac Type Severity Reaction Status Date / Time amoxicillin Allergy Rash Verified 05/27/21 06:32 hydromorphone HCl AdvReac "Pass out" Verified 05/27/21 06:32 [From Dilaudid] Home Meds: Home Meds Ciprofloxacin HCl [Cipro] 500 mg PO BID #28 tablet 05/27/21 [Rx] Hydrocodone/Acetaminophen [Hydrocodone-Acetamin 5-325 mg] 1 - 2 each PO Q6H PRN #15 tablet 05/27/21 [Rx] Ondansetron [Zofran ODT] 4 mg PO Q6H PRN #20 tab.dis 05/27/21 [Rx] metroNIDAZOLE [Flagyl] 500 mg PO Q8H #42 tab 05/27/21 [Rx] Past Medical History HEENT History: Reports: None Cardiovascular History: Reports: None Respiratory History: Reports: Asthma, Bronchitis, Recurrent Gastrointestinal History: Reports: Cholelithiasis, GERD, Hiatal Hernia Genitourinary History: Reports: Other (See Below) Other Genitourinary History: painiful periods Musculoskeletal History: Reports: Arthritis Neurological History: Reports: Migraines Psychiatric History: Reports: Bipolar Endocrine/Metabolic History: Reports: Obesity/BMI 30+ Immunologic History: Reports: None Oncologic (Cancer) History: Reports: None Dermatologic History: Reports: None - Infectious Disease History Infectious Disease History: Reports: Influenza, Other (See Below) Other Infectious Disease History: Swine flu - Past Surgical History HEENT Surgical History: Reports: Oral Surgery GI Surgical History: Reports: Cholecystectomy Social & Family History - Family History Family Medical History: No Pertinent Family History - Tobacco Use Tobacco Use Status *Q: Current Every Day Tobacco User Years of Tobacco use: 8 Packs/Tins Daily: 1 - Caffeine Use Caffeine Use: Reports: Coffee, Soda - Recreational Drug Use Recreational Drug Use: No - Living Situation & Occupation Living situation: Reports: Single Occupation: Unemployed ED ROS GENERAL - Review of Systems Review Of Systems: See Below Constitutional: Reports: No Symptoms HEENT: Reports: No Symptoms Respiratory: Reports: No Symptoms Cardiovascular: Reports: No Symptoms Endocrine: Reports: No Symptoms GI/Abdominal: Reports: Abdominal Pain, Nausea, Vomiting. Denies: Diarrhea : Reports: No Symptoms Musculoskeletal: Reports: No Symptoms ED EXAM, GI/ABD - Physical Exam Exam: See Below Exam Limited By: No Limitations General Appearance: Alert, No Apparent Distress Ears: Normal External Exam Nose: Normal Inspection Head: Atraumatic, Normocephalic Neck: Normal Inspection Respiratory/Chest: No Respiratory Distress, Lungs Clear, Normal Breath Sounds Cardiovascular: Regular Rate, Rhythm, No Edema, No Murmur GI/Abdominal Exam: Soft, No Organomegaly, No Mass, Tender (Moderate pain upon palpation to the right upper abdomen) Course - Vital Signs Last Recorded V/S: Last Vital Signs Temp 96 F L 05/27/21 06:28 Pulse 65 05/27/21 06:28 Resp 20 05/27/21 06:28 BP 130/77 05/27/21 06:28 Pulse Ox 98 05/27/21 06:28 - Orders/Labs/Meds Orders: Active Orders 24 hr Category Date Time Status Cardiac Monitoring [RC] . DIRECTED Care 05/27/21 06:52 Active Peripheral IV Care [RC] . DIRECTED Care 05/27/21 06:52 Active Sodium Chloride 0.9% [Normal Saline] 1,000 ml Med 05/27/21 07:00 Active IV .BOLUS Sodium Chloride 0.9% [Saline Flush] Med 05/27/21 06:52 Active 10 ml FLUSH ASDIRECTED PRN Sodium Chloride 0.9% [Saline Flush] Med 05/27/21 07:08 Active 10 ml FLUSH ONETIME PRN ED Antiemetic Medication Reflex [OM.PC] Stat Oth 05/27/21 06:52 Ordered Peripheral IV Insertion Adult [OM.PC] Stat Oth 05/27/21 06:52 Ordered Medication Orders Sodium Chloride (Normal Saline) 1,000 mls @ 1,000 mls/hr IV .BOLUS JERE Last Admin: 05/27/21 07:16 Dose: 1,000 mls/hr Documented by: MAXIMO Sodium Chloride (Sodium Chloride 0.9% 10 Ml Syringe) 10 ml FLUSH ASDIRECTED PRN PRN Reason: Keep Vein Open Last Admin: 05/27/21 07:17 Dose: 10 ml Documented by: MAXIMO Sodium Chloride (Sodium Chloride 0.9% 10 Ml Syringe) 10 ml FLUSH ONETIME PRN PRN Reason: IV FLUSH Last Admin: 05/27/21 08:20 Dose: 10 ml Documented by: Admin: 05/27/21 07:18 Dose: 10 ml Documented by: MAXIMO Labs: Laboratory Tests 05/27/21 05/27/21 05/27/21 Range/Units 07:05 07:05 07:05 WBC 11.79 H (3.98-10.04) K/mm3 RBC 4.43 (3.98-5.22) M/mm3 Hgb 13.9 (11.2-15.7) gm/dl Hct 42.0 (34.1-44.9) % MCV 94.8 (79.4-94.8) fl MCH 31.4 (25.6-32.2) pg MCHC 33.1 (32.2-35.5) g/dl RDW Std Deviation 41.5 (36.4-46.3) fL Plt Count 295 (182-369) K/mm3 MPV 9.7 (9.4-12.3) fl Neut % (Auto) 61.0 (34.0-71.1) % Lymph % (Auto) 32.2 (19.3-51.7) % [place] % (Auto) 5.4 (4.7-12.5) % Eos % (Auto) 0.7 (0.7-5.8) Baso % (Auto) 0.2 (0.1-1.2) % Neut # (Auto) 7.19 H (1.56-6.13) K/mm3 Lymph # (Auto) 3.80 H (1.18-3.74) K/mm3 [place]erry # (Auto) 0.64 H (0.24-0.36) K/mm3 Eos # (Auto) 0.08 (0.04-0.36) K/mm3 Baso # (Auto) 0.02 (0.01-0.08) K/mm3 Manual Slide Review Normal smear Sodium 144 (136-145) mEq/L Potassium 3.7 (3.5-5.1) mEq/L Chloride 106 (98-107) mEq/L Carbon Dioxide 28 (21-32) mEq/L Anion Gap 13.7 (5-15) BUN 18 (7-18) mg/dL Creatinine 0.9 (0.55-1.02) mg/dL Est Cr Clr Drug Dosing 96.39 mL/min Estimated GFR (MDRD) > 60 (>60) mL/min BUN/Creatinine Ratio 20.0 H (14-18) Glucose 103 H (70-99) mg/dL Calcium 8.4 L (8.5-10.1) mg/dL Total Bilirubin 0.3 (0.2-1.0) mg/dL AST 91 H (15-37) U/L ALT 93 H (14-59) U/L Alkaline Phosphatase 54 (46-116) U/L C-Reactive Protein <0.2 (<1.0) mg/dL Total Protein 6.8 (6.4-8.2) g/dl Albumin 3.3 L (3.4-5.0) g/dl Globulin 3.5 gm/dL Albumin/Globulin Ratio 0.9 L (1-2) Lipase 97 (73-393) U/L HCG, Qual Negative (NEGATIVE) Urine Color (Yellow) Urine Appearance (Clear) Urine pH (5.0-8.0) Ur Specific [place] (1.005-1.030) Urine Protein (Negative) Urine Glucose (UA) (Negative) Urine Ketones (Negative) Urine Occult Blood (Negative) Urine Nitrite (Negative) Urine Bilirubin (Negative) Urine Urobilinogen (0.2-1.0) Ur Leukocyte Esterase (Negative) Urine RBC (0-5) /hpf Urine WBC (0-5) /hpf Ur Squamous Epith Cells (0-5) /hpf Urine Bacteria (FEW) /hpf Urine Mucus (FEW) /hpf 05/27/21 Range/Units 08:29 WBC (3.98-10.04) K/mm3 RBC (3.98-5.22) M/mm3 Hgb (11.2-15.7) gm/dl Hct (34.1-44.9) % MCV (79.4-94.8) fl MCH (25.6-32.2) pg MCHC (32.2-35.5) g/dl RDW Std Deviation (36.4-46.3) fL Plt Count (182-369) K/mm3 MPV (9.4-12.3) fl Neut % (Auto) (34.0-71.1) % Lymph % (Auto) (19.3-51.7) % [place]erry % (Auto) (4.7-12.5) % Eos % (Auto) (0.7-5.8) Baso % (Auto) (0.1-1.2) % Neut # (Auto) (1.56-6.13) K/mm3 Lymph # (Auto) (1.18-3.74) K/mm3 [place] # (Auto) (0.24-0.36) K/mm3 Eos # (Auto) (0.04-0.36) K/mm3 Baso # (Auto) (0.01-0.08) K/mm3 Manual Slide Review Sodium (136-145) mEq/L Potassium (3.5-5.1) mEq/L Chloride (98-107) mEq/L Carbon Dioxide (21-32) mEq/L Anion Gap (5-15) BUN (7-18) mg/dL Creatinine (0.55-1.02) mg/dL Est Cr Clr Drug Dosing mL/min Estimated GFR (MDRD) (>60) mL/min BUN/Creatinine Ratio (14-18) Glucose (70-99) mg/dL Calcium (8.5-10.1) mg/dL Total Bilirubin (0.2-1.0) mg/dL AST (15-37) U/L ALT (14-59) U/L Alkaline Phosphatase (46-116) U/L C-Reactive Protein (<1.0) mg/dL Total Protein (6.4-8.2) g/dl Albumin (3.4-5.0) g/dl Globulin gm/dL Albumin/Globulin Ratio (1-2) Lipase (73-393) U/L HCG, Qual (NEGATIVE) Urine Color Yellow (Yellow) Urine Appearance Clear (Clear) Urine pH 6.0 (5.0-8.0) Ur Specific [place] 1.025 (1.005-1.030) Urine Protein Negative (Negative) Urine Glucose (UA) Negative (Negative) Urine Ketones Negative (Negative) Urine Occult Blood Negative (Negative) Urine Nitrite Negative (Negative) Urine Bilirubin Negative (Negative) Urine Urobilinogen 0.2 (0.2-1.0) Ur Leukocyte Esterase Negative (Negative) Urine RBC 0-5 (0-5) /hpf Urine WBC 0-5 (0-5) /hpf Ur Squamous Epith Cells 5-10 H (0-5) /hpf Urine Bacteria Moderate H (FEW) /hpf Urine Mucus Few (FEW) /hpf Meds: Medications Generic Name Dose Route Start Last Admin Trade Name Freheather PRN Reason Stop Dose Admin Sodium Chloride 1,000 mls @ 1,000 mls/hr 05/27/21 07:00 05/27/21 07:16 Normal Saline IV 1,000 mls/hr .BOLUS JERE Administration Sodium Chloride 10 ml 05/27/21 06:52 05/27/21 07:17 Sodium Chloride 0.9% 10 Ml Syringe FLUSH 10 ml ASDIRECTED PRN Administration Keep Vein Open Sodium Chloride 10 ml 05/27/21 07:08 05/27/21 08:20 Sodium Chloride 0.9% 10 Ml Syringe FLUSH 10 ml ONETIME PRN Administration IV FLUSH Discontinued Medications Generic Name Dose Route Start Last Admin Trade Name Freheather PRN Reason Stop Dose Admin Diatrizoate Meglum/Diatrizoate Sod 120 ml 05/27/21 07:08 05/27/21 08:19 Diatrizoate Meglumine/Diatrizoate Sodium 37% 120 Ml Bottle PO 05/27/21 07:09 45 ml ONETIME ONE Administration Iopamidol 50 ml 05/27/21 07:08 05/27/21 08:20 Iopamidol 612 Mg/Ml 50 Ml Sdv IVPUSH 05/27/21 07:09 50 ml ONETIME ONE Administration Iopamidol 100 ml 05/27/21 07:08 05/27/21 08:20 Iopamidol 612 Mg/Ml 100 Ml Bottle IVPUSH 05/27/21 07:09 100 ml ONETIME ONE Administration Metoclopramide HCl 10 mg 05/27/21 09:01 05/27/21 09:12 Metoclopramide 10 Mg/2 Ml Sdv IVPUSH 05/27/21 09:02 10 mg ONETIME ONE Administration Morphine Sulfate 4 mg 05/27/21 06:54 05/27/21 07:12 Morphine 4 Mg/Ml Syringe IVPUSH 05/27/21 06:55 4 mg ONETIME ONE Administration Morphine Sulfate 4 mg 05/27/21 09:00 05/27/21 09:14 Morphine 4 Mg/Ml Syringe IVPUSH 05/27/21 09:01 4 mg ONETIME ONE Administration Ondansetron HCl 4 mg 05/27/21 06:52 05/27/21 07:10 Ondansetron 4 Mg/2 Ml Sdv IVPUSH 05/27/21 06:53 4 mg ONETIME ONE Administration - Re-Assessments/Exams Free Text/Narrative Re-Assessment/Exam: 05/27/21 06:58 I ordered an IV NS 1L bolus, zofran 4mg IV, morphine 4mg IV, labs, UA and a CT of her abdomen and pelvis. 05/27/21 09:16 Her WBC was slightly elevated at 11.79. Her AST is elevated at 91. Her ALT is elevated at 93. Her CRP is normal. Her lipase is normal. Her HCG is negative. Her UA shows no UTI. Her CT shows bowel wall thickening within portions of the right colon and transverse colon compatible with a nonspecific colitis. Gastroesophageal reflux of contrast is noted. No other acute abnormality is appreciated on CT study of the abdomen and pelvis. She has more pain and nausea so I ordered morphine 4mg IV and reglan 10mg IV. I have also called Dr Klein. 05/27/21 09:43 Dr Klein contacted me back. She recommended a stool sample to check for C-dif and culture, flagyl and cipro and follow up in he clinic. Departure - Departure Time of Disposition: 09:45 Disposition: Home, Self-Care 01 Condition: Good Clinical Impression: Nonspecific colitis - Discharge Information *PRESCRIPTION DRUG MONITORING PROGRAM REVIEWED*: Not Applicable *COPY OF PRESCRIPTION DRUG MONITORING REPORT IN PATIENT [place]: Not Applicable Prescriptions: Ciprofloxacin HCl [Cipro] 500 mg PO BID #28 tablet metroNIDAZOLE [Flagyl] 500 mg PO Q8H #42 tab Hydrocodone/Acetaminophen [Hydrocodone-Acetamin 5-325 mg] 1 - 2 each PO Q6H PRN #15 tablet PRN Reason: Pain Ondansetron [Zofran ODT] 4 mg PO Q6H PRN #20 tab.dis PRN Reason: Nausea\\vomiting Referrals: Giovanna Jiménez NP [Primary Care Provider] - Ernie-Zora Burks MD [Physician] - 1 Week Forms: ED Department Discharge, ED Return to Work/School Form Additional Instructions: Drink plenty of fluids. Take the flagyl 3 times per day for 14 days. Take the cipro 2 times per day for 14 days. Try to bring back a stool sample to be tested. Take the zofran every 6 hours as needed for nausea and vomiting. Take the hydrocodone as needed for pain. Follow up with Dr Klein. Please return if you are worse. Sepsis Event Note (ED) - Focused Exam Vital Signs: Vital Signs Temp Pulse Resp BP Pulse Ox 05/27/21 06:28 96 F L 65 20 130/77 98 - My Orders Last 24 Hours: My Active Orders 05/27/21 06:52 Cardiac Monitoring [RC] . DIRECTED Peripheral IV Care [RC] . DIRECTED Sodium Chloride 0.9% [Saline Flush] 10 ml FLUSH ASDIRECTED PRN ED Antiemetic Medication Reflex [OM.PC] Stat Peripheral IV Insertion Adult [OM.PC] Stat 05/27/21 07:00 Sodium Chloride 0.9% [Normal Saline] 1,000 ml IV .BOLUS 05/27/21 07:08 Sodium Chloride 0.9% [Saline Flush] 10 ml FLUSH ONETIME PRN - Assessment/Plan Last 24 Hours: My Active Orders 05/27/21 06:52 Cardiac Monitoring [RC] . DIRECTED Peripheral IV Care [RC] . DIRECTED Sodium Chloride 0.9% [Saline Flush] 10 ml FLUSH ASDIRECTED PRN ED Antiemetic Medication Reflex [OM.PC] Stat Peripheral IV Insertion Adult [OM.PC] Stat 05/27/21 07:00 Sodium Chloride 0.9% [Normal Saline] 1,000 ml IV .BOLUS 05/27/21 07:08 Sodium Chloride 0.9% [Saline Flush] 10 ml FLUSH ONETIME PRN
[2021-05-27] MEDS ORDERED: Sodium Chloride 0.9% 1,000 ML IV SCH (07:00)
[2021-05-27] MEDS ORDERED: Iopamidol 612 MG/ML 100 ML Bottle IVPUSH ONE (07:08)
[2021-05-27] MEDS ORDERED: Iopamidol 612 MG/ML 50 ML SDV IVPUSH ONE (07:08)
[2021-05-27] MEDS ORDERED: Diatrizoate Meglumine/Diatrizoate Sodium 37% 120 ML Bottle PO ONE (07:08)
[2021-05-27] MEDS: Sodium Chloride 0.9% 10 ML Syringe FLUSH PRN ×2 (07:18→08:20)
--- NOTE | 2021-05-27 08:48 | CT ---
CT abdomen and pelvis Technique: Multiple axial sections were obtained from above the dome of the diaphragm inferiorly through the pubic symphysis. Intravenous and oral contrast were utilized. Delayed images were obtained through the bladder. Reconstructed coronal and sagittal images were obtained. Comparison: Prior CT abdomen and pelvis exam of 07/26/17. Findings: Visualized lung bases show nothing acute. Liver contains no focal parenchymal abnormality. Spleen size is normal. Mild gastroesophageal reflux is seen of contrast into the distal esophagus. Adrenal glands show no nodule. Surgical clips are noted from prior cholecystectomy. No abnormality is appreciated within the pancreas. Abdominal aorta shows no aneurysm. Kidneys show symmetric contrast enhancement. No hydronephrosis or mass is seen. Delayed images show contrast within the distal ureters and within the bladder. Abdominal aorta shows no aneurysm. Small retroperitoneal lymph nodes are seen which are believed to be within normal limits. No mesenteric abnormalities are seen. No pelvic mass or adenopathy is seen. Appendix is seen which is normal in size. Bowel wall thickening is seen within portions of the right colon and transverse colon. No free fluid or definite inflammatory change is seen. Bone window settings were reviewed which show no acute osseous finding. Impression: 1. Bowel wall thickening within portions of the right colon and transverse colon compatible with a nonspecific colitis. 2. Gastroesophageal reflux of contrast is noted. 3. No other acute abnormality is appreciated on CT study of the abdomen and pelvis. Diagnostic code #3
[2021-05-27] MEDS ORDERED: Metoclopramide 10 MG/2 ML SDV IVPUSH ONE (09:01)
== END 2021-05-27 10:18 | disposition home or self-care (01) ==
LOC: JD.ED 06:18
DX: K52.9 Noninfective gastroenteritis and colitis, unspecified (principal); K21.9 Gastro-esophageal reflux disease without esophagitis; E66.9 Obesity, unspecified; Z68.42 Body mass index [BMI] 45.0-49.9, adult; Z88.0 Allergy status to penicillin; Z88.5 Allergy status to narcotic agent; Z72.0 Tobacco use; Z79.899 Other long term (current) drug therapy
CPT/HCPCS: 36415; 74177; 80053; 81001; 83690; 84703; 85025; 86140; 96374; 96375; 96376; 99284; J2270; J2405; J2765; J7030; Q9963; Q9967

== ENCOUNTER 2022-11-28 12:04 | Emergency (ER) | payer BC ==
[2022-11-28 12:14] VITALS: BP 157/97; PULSE 77
[2022-11-28] MEDS ORDERED: Morphine 2 MG/ML SYRINGE IM ONE (12:33)
[2022-11-28] MEDS ORDERED: Orphenadrine 100 MG Tab.ER PO ONE (12:37)
== END 2022-11-28 13:50 | disposition home or self-care (01) ==
LOC: JD.ED 12:04
DX: M62.830 Muscle spasm of back (principal); K21.9 Gastro-esophageal reflux disease without esophagitis; F17.210 Nicotine dependence, cigarettes, uncomplicated; E66.9 Obesity, unspecified; Z68.43 Body mass index [BMI] 50.0-59.9, adult; Z88.0 Allergy status to penicillin; Z88.5 Allergy status to narcotic agent; W00.0XXA Fall on same level due to ice and snow, initial encounter
CPT/HCPCS: 96372; 99283; A9270; J2270

== ENCOUNTER 2024-08-30 08:53 | Day surgery (SDC) | payer BC ==
[~2024-08-30 08:53] MED LIST: Sodium Chloride 0.9% 10 ML Syringe FLUSH PRN; Sodium Chloride 0.9% 10 ML Syringe FLUSH SCH
[2024-08-30] MEDS: Lactated Ringers 1,000 ML IV SCH (09:30)
[2024-08-30] MEDS ORDERED: Propofol 200 MG/20 ML SDV ONE ×3 (10:03→10:44)
[2024-08-30] MEDS ORDERED: Midazolam 1 MG/ML 2 ML SDV ONE (10:04)
[2024-08-30] MEDS ORDERED: Labetalol 100 MG/20 ML MDV ONE (10:49)
[2024-08-30] MEDS: Albuterol/Ipratropium 3.0-0.5 MG/3 ML Neb Soln NEB PRN (11:17)
[2024-08-30 12:07] VITALS: BP 132/79; PULSE 86
== END 2024-08-30 11:33 | disposition home or self-care (01) ==
LOC: JD.SDS 08:53
PROVIDERS: ATTEND Surgery
DX: Z12.11 Encounter for screening for malignant neoplasm of colon (principal); K63.5 Polyp of colon; F41.9 Anxiety disorder, unspecified; F32.A Depression, unspecified; J45.40 Moderate persistent asthma, uncomplicated; E66.9 Obesity, unspecified; Z68.43 Body mass index [BMI] 50.0-59.9, adult; F17.210 Nicotine dependence, cigarettes, uncomplicated; Z79.899 Other long term (current) drug therapy; Z88.0 Allergy status to penicillin
CPT/HCPCS: 45380; J1920; J2250; J2704; J7120; 00811; J7620-GY

== ENCOUNTER 2024-11-27 23:16 | Emergency (ER) | payer BC ==
[2024-11-27 23:36] VITALS: BP 134/85; PULSE 82
[2024-11-27] MEDS: Simethicone 80 MG Tab.Chew PO ONE (23:49)
[2024-11-27] MEDS: Ketorolac 30 MG/ML SDV IVPUSH ONE (23:58)
[2024-11-28] MEDS: Polyethylene Glycol 3350 Powder 17 GM Packet PO ONE (01:21)
[2024-11-28] MEDS: Magnesium Citrate Solution 296 ML Bottle PO ONE (01:21)
== END 2024-11-28 01:30 | disposition home or self-care (01) ==
LOC: JD.ED 23:16
DX: K59.00 Constipation, unspecified (principal); R55 Syncope and collapse; J45.909 Unspecified asthma, uncomplicated; E66.9 Obesity, unspecified; K21.9 Gastro-esophageal reflux disease without esophagitis; Z88.8 Allergy status to other drugs, medicaments and biological substances; Z90.49 Acquired absence of other specified parts of digestive tract; Z68.43 Body mass index [BMI] 50.0-59.9, adult; Z79.899 Other long term (current) drug therapy
CPT/HCPCS: 36415; 74018; 84703; 96374; 99284; A9270; J1885